=== PATIENT | female | born 1965 | race Caucasian/White ===

== ENCOUNTER → 2018-09-13 08:33 | Outpatient (CLI) | payer BC, SELFPAY ==
[2018-09-13 12:41] LABS: Absolute Lymphocyte Count 2.97 X10^3/ul (0.83-4.51); Absolute Neutrophil Count 3.9 X10^3/uL (2.0-7.7); Basophil# 0.04 X10^3/uL; Basophil% 0.5 % (0-1); Eosinophil# 0.43 X10^3/uL; Eosinophils% 5.4 % (0-5); Hematocrit 43.3 % (37-47); Hemoglobin 13.7 g/dl (12.0-15.0); Lymphocyte # 2.97 X10^3/ul (4.0); Mean Corp Hgb Conc 31.6 g/gl (32-36); Mean Corpuscular Hgb 31.6 pg (27.0-32.0); Mean Corpuscular Volume 99.8 fL (81-99); Monocyte# 0.65 X10^3/uL; Monocyte% 8.1 % (0-10); Neutrophil # 3.92 X10^3/uL (2.7-7.7); Neutrophil % 48.9 % (47-70); Platelet Count 203 K/mm3 (150-450); RBC Distribution Width CV 14.1 % (11.6-14.6); RBC Distribution Width SD 51.4 fl (35.1-43.9); Red Blood Count 4.34 M/mm3 (4.2-5.4)
[2018-09-13 12:42] LABS: POSITIVE COUNT NO; POSITIVE DIFFERENTIAL NO; POSITIVE MORPHOLOGY NO
[2018-09-13 13:12] LABS: AST(SGOT) 29 U/L (15-37); Alanine Aminotransfer ALT/SGPT 25 U/L (13-56); Albumin, Serum 3.7 g/dL (3.2-5.0); Alkaline Phosphatase 67 U/L (45-117); Anion Gap 8 (5-15); BUN 17 mg/dL (7-18); BUN/Creat Ratio 17.1 RATIO (10-20); Calcium,Total 8.3 mg/dL (8.5-10.1); Chloride 110 mmol/L (98-107); Cholesterol 215 mg/dL (200); EST Glomerular Filtration Rate 62 mL/min (>60); Est Glom Filt Rate - Afr Amer 75 mL/min (>60); Globulin 3.6 g/dL (2.2-4.2); Glucose 60 mg/dL (74-106); High Density Lipoprotein 57 mg/dL; Potassium 3.5 mmol/L (3.5-5.1); Protein, Total 7.3 g/dL (6.4-8.2); Sodium Level 144 mmol/L (136-145); T4 Free Direct 0.89 ng/dL (0.76-1.46); Triglycerides 90 mg/dL; Very Low Density Lipoprotein 18 mg/dL (5-40)
== END ==
PROVIDERS: Family Provider Family Medicine; PCP Family Medicine; Visit Provider Family Medicine
DX: Z00.01 Encounter for general adult medical examination with abnormal findings (principal); E03.9 Hypothyroidism, unspecified
CPT/HCPCS: 36415; 80053; 80061; 84439; 84443; 85025

== ENCOUNTER → 2020-01-15 | Outpatient (CLI) | payer BC, SELFPAY ==
[2016-07-24 20:16] VITALS: BMI 26.4
--- NOTE | 2020-01-15 09:53 | RAD_ITS ---
STUDY: X-RAY - LUMBOSACRAL SPINE REASON FOR EXAM: Female, 54 years old. spondylolisthesis TECHNIQUE: 7 view(s) of the lumbosacral spine were obtained. COMPARISON: None FINDINGS: Normal lumbar lordosis. There is no substantial scoliosis. There is a severe grade 4 anterolisthesis of L5 relative to S1. Normal vertebral bodies and endplates. There is severe narrowing of the L5-S1 disc space. Normal bilateral sacral ala, sacroiliac joints, and visualized sacrum. Normal visualized soft tissue structures. RAD/L/S Spine Bending Flex/Ext IMPRESSION: Severe grade 4 anterolisthesis of L5 relative to S1. Severe narrowing of the L5-S1 disc space. Electronically Signed: Eliseo Green MD at 16:35 EDT , Service support ,
[2020-01-15 09:56] LABS: Bacteria 0 SEEN /hpf (None Seen); Mucous, Urine 0 SEEN /hpf (<or=2+); Squamous Epithelial Cells - UA 0 SEEN /hpf (5-10); White Blood Cells 0 SEEN /hpf (0-5)
[2020-01-15 12:04] LABS: Absolute Lymphocyte Count 2.68 X10^3/uL (0.83-4.51); Absolute Neutrophil Count 5.2 X10^3/uL (2.0-7.7); Basophil# 0.07 X10^3/uL; Basophil% 0.8 % (0-1); Eosinophil# 0.27 X10^3/uL; Hematocrit 44.8 % (37-47); Hemoglobin 14.5 g/dL (12.0-15.0); Lymphocyte # 2.68 X10^3/ul (4.0); Lymphocyte % 29.4 % (19-41); Mean Corp Hgb Conc 32.4 g/dL (32-36); Mean Corpuscular Volume 98.9 fL (81-99); Mean Platelet Vol. 11.9 fl (6.2-12.0); Monocyte# 0.83 X10^3/uL; Monocyte% 9.1 % (0-10); NRBC Flagged by Analyzer 0 % (0-5); Neutrophil # 5.23 X10^3/uL (2.7-7.7); Neutrophil % 57.4 % (47-70); Platelet Count 250 K/mm3 (150-450); RBC Distribution Width CV 13.9 % (11.6-14.6); RBC Distribution Width SD 50.5 fl (35.1-43.9); Red Blood Count 4.53 M/mm3 (4.2-5.4); White Blood Count 9.1 K/mm3 (4.4-11.0)
[2020-01-15 12:19] LABS: Vitamin B12 406 pg/mL (211-911)
[2020-01-15 12:30] LABS: ALB/GLOB Ratio 0.9 RATIO (0.9-2.4); AST(SGOT) 17 U/L (15-37); Alanine Aminotransfer ALT/SGPT 19 U/L (13-56); Albumin, Serum 3.7 g/dL (3.2-5.0); Alkaline Phosphatase 79 U/L (45-117); Anion Gap 8 (5-15); BUN 20 mg/dL (7-18); BUN/Creat Ratio 21.4 RATIO (10-20); Calcium,Total 8.7 mg/dL (8.5-10.1); Chloride 108 mmol/L (98-107); Cholesterol 165 mg/dL (200); Creatinine, Serum 0.93 mg/dL (0.55-1.02); EST Glomerular Filtration Rate 67 mL/min (>60); Est Glom Filt Rate - Afr Amer 81 mL/min (>60); Glucose 81 mg/dL (74-106); High Density Lipoprotein 46 mg/dL; Potassium 3.9 mmol/L (3.5-5.1); Protein, Total 7.7 g/dL (6.4-8.2); Sodium Level 141 mmol/L (136-145); T4 Free Direct 1.27 ng/dL (0.76-1.46); Thyroid Stim Hormone (TSH) 2.54 uIU/mL (0.358-3.74); Triglycerides 117 mg/dL; Very Low Density Lipoprotein 23 mg/dL (5-40)
[2020-01-15 12:51] LABS: Color, Urine Yellow (Yellow); Glucose, Dipstick Normal (Normal); Ketone-Dipstick Negative (Negative); Leukocyte Esterase-Dipstick Negative /ul (Negative); Nitrite-Dipstick Negative (Negative); Occult Blood-Urine 50 /ul (Negative); Protein-Dipstick Negative (Negative); Specific Gravity, Urine 1.025 (1.002-1.030); Urine Bilirubin Dipstick Negative (Negative); Urine Clarity Sl. Cloudy (Clear); Urine Urobilinogen Normal (Normal)
[2020-01-15 13:03] LABS: Red Blood Cells-Urine 0-5 SEEN /hpf (0-5)
== END | disposition home or self-care (01) ==
LOC: MTLAB 09:50
PROVIDERS: PCP Family Medicine; Referring Provider Family Medicine; Visit Provider Family Medicine
DX: Z00.00 Encounter for general adult medical examination without abnormal findings (principal); M43.16 Spondylolisthesis, lumbar region; E03.9 Hypothyroidism, unspecified; N39.0 Urinary tract infection, site not specified; E53.8 Deficiency of other specified B group vitamins
CPT/HCPCS: 36415; 72120; 80053; 80061; 81001; 82607; 84439; 84443; 85025

== ENCOUNTER → 2022-03-03 | Outpatient (CLI) | payer BC, SELFPAY ==
--- NOTE | 2022-03-03 12:32 | RAD_ITS ---
INDICATION: PAIN EXAMINATION/TECHNIQUE: X-RAY - RIGHT XR Shoulder Min 2 Views 4 VIEWS COMPARISON: 03/08/2014. FINDINGS: A bone density is visualized superimposed over the surgical neck of the right humerus. Degenerative changes visualized in the greater tuberosity of the right humerus and in the right acromioclavicular joint. No evidence of cortical irregularity or lucency to suggest a fracture, no evidence of lytic sclerotic bone lesion is seen. Scapulohumeral arch is well maintained, no evidence of dislocation is seen. The overlying soft tissues are unremarkable, the underlying soft tissues and visualized right upper lung malin are unremarkable. RAD/Shoulder min 2 Views IMPRESSION: Degenerative changes, no evidence of acute osseous abnormality is seen Electronically Signed: Sudhir Ariza MD at 16:33 EDT ,
== END | disposition home or self-care (01) ==
PROVIDERS: PCP Family Medicine; Referring Provider Family Medicine; Visit Provider Family Medicine
DX: M25.511 Pain in right shoulder (principal)
CPT/HCPCS: 73030

== ENCOUNTER → 2022-04-12 | Outpatient (CLI) | payer BC, SELFPAY ==
--- NOTE | 2022-04-12 15:54 | MRI_ITS ---
STUDY: MRI RIGHT SHOULDER REASON FOR EXAM: Right shoulder pain extending into elbow for 1.5 years, no specific injury. TECHNIQUE: Standardized fat and water weighted pulse sequences were obtained in all 3 orthogonal planes. COMPARISON: Radiographs 03/03/2022. FINDINGS: Although there is image degradation secondary to patient motion, there is still significant diagnostically useful information available from this examination. There is supraspinatus tendinosis (T2 coronal images 13-15) without discrete tendon tear. There is infraspinatus tendinosis and a small low-grade partial-thickness tear of the articular surface of the distal infraspinatus tendon (T2 coronal image 10) measuring 0.2 cm in length. There is subscapularis tendinosis (T2 axial images 9, 10) without discrete tendon tear. Normal teres minor tendon. Normal supraspinatus muscle. Normal infraspinatus muscle. Normal subscapularis muscle. Normal teres minor muscle. Normal glenohumeral articulation. There is a small subchondral cyst in the anterior aspect of the humeral head. There is a bone island in the proximal humeral metaphysis. Normal biceps labral complex. There is mild tendinosis of the intracapsular long biceps tendon (T2 sagittal image 13). Normal labrum. Normal capsulo- ligamentous complex. There is acromioclavicular arthrosis with hypertrophic changes effacing the subacromial fat (T2 sagittal image 13). There is a Type II morphology (curved), with a neutral orientation. There is subacromial-subdeltoid bursal fluid (T2 coronal images 13-17). Normal visualized coracohumeral and coracoacromial ligaments. Normal deltoid muscle. Normal trapezius muscle. MRI/Upper Ext Joint Only(Routine) IMPRESSION: Small low-grade partial-thickness tear and tendinosis of the infraspinatus tendon. Supraspinatus and subscapularis tendinosis. Mild tendinosis of the long biceps tendon. Acromioclavicular arthrosis. Subacromial-subdeltoid bursitis. Electronically Signed: Brian Mcneal MD at 17:51 EDT ,
== END | disposition home or self-care (01) ==
PROVIDERS: PCP Family Medicine; Referring Provider Orthopaedic Surgery Sports Medicine; Visit Provider Orthopaedic Surgery Sports Medicine
DX: M75.41 Impingement syndrome of right shoulder (principal); M25.511 Pain in right shoulder
CPT/HCPCS: 73221

== ENCOUNTER → 2022-12-06 | Outpatient (CLI) | payer BC, SELFPAY ==
[2022-12-06 18:17] LABS: Absolute Lymphocyte Count 3.18 X10^3/uL (0.83-4.51); Absolute Neutrophil Count 5.3 X10^3/uL (2.0-7.7); Basophil# 0.05 X10^3/uL; Basophil% 0.5 % (0-1); Eosinophil# 0.16 X10^3/uL; Eosinophils% 1.7 % (0-5); Hemoglobin 13.3 g/dL (12.0-15.0); Lymphocyte # 3.18 X10^3/ul (0.83-4.51); Lymphocyte % 34.3 % (19-41); Mean Corp Hgb Conc 32.4 g/dL (32-36); Mean Corpuscular Hgb 31.3 pg (27.0-32.0); Mean Corpuscular Volume 96.5 fL (81-99); Mean Platelet Vol. 11.9 fl (6.2-12.0); Monocyte% 6.5 % (0-10); NRBC Flagged by Analyzer 0 % (0-5); Neutrophil # 5.25 X10^3/uL (2.7-7.7); Neutrophil % 56.6 % (47-70); Platelet Count 232 K/mm3 (150-450); RBC Distribution Width CV 13.3 % (11.6-14.6); RBC Distribution Width SD 47.5 fl (35.1-43.9); Red Blood Count 4.25 M/mm3 (4.2-5.4); White Blood Count 9.3 K/mm3 (4.4-11.0)
[2022-12-06 18:33] LABS: Vitamin B12 290 pg/mL (211-911)
[2022-12-06 18:47] LABS: ALB/GLOB Ratio 0.9 RATIO (0.9-2.4); AST(SGOT) 21 U/L (15-37); Alanine Aminotransfer ALT/SGPT 24 U/L (13-56); Albumin, Serum 3.4 g/dL (3.2-5.0); Alkaline Phosphatase 58 U/L (45-117); Anion Gap 7 (5-15); BUN 13 mg/dL (7-18); BUN/Creat Ratio 12.5 RATIO (10-20); Calcium,Total 8.2 mg/dL (8.5-10.1); Chloride 107 mmol/L (98-107); Creatinine, Serum 1.04 mg/dL (0.55-1.02); EST Glomerular Filtration Rate 58 mL/min (>60); Est Glom Filt Rate - Afr Amer 71 mL/min (>60); Globulin 3.7 g/dL (2.2-4.2); Glucose 105 mg/dL (74-106); Potassium 3.7 mmol/L (3.5-5.1); Protein, Total 7.1 g/dL (6.4-8.2); Sodium Level 141 mmol/L (136-145); T4 Free Direct 1.42 ng/dL (0.76-1.46); Thyroid Stim Hormone (TSH) 0.37 uIU/mL (0.358-3.74)
== END | disposition home or self-care (01) ==
LOC: BFHLAB 15:30
PROVIDERS: PCP Family Medicine; Visit Provider Family Medicine
DX: I95.9 Hypotension, unspecified (principal); E03.9 Hypothyroidism, unspecified; E53.0 Riboflavin deficiency
CPT/HCPCS: 36415; 80053; 82607; 84439; 84443; 85025

== ENCOUNTER 2023-01-07 06:43 | Emergency (ER) | payer BC, SELFPAY ==
[2023-01-07 06:43] VITALS: BP 162/88; PULSE 59; RESP 17; TEMP 36; O2SAT 100; BMI 24.3
--- NOTE | 2023-01-07 07:04 | CT_ITS ---
STUDY: CT ABDOMEN AND PELVIS WITH CONTRAST - URINARY TRACT REASON FOR EXAM: Female, 57 years old. Pain, Nausea Vomiting, Diarrhea RADIATION DOSAGE (If Supplied By Facility): CTDIvol = ( 17.73 ) mGy, DLP = ( 544.70 ) mGycm TECHNIQUE: IV 100mL Isovue-370 was administered. Transaxial images were obtained from the dome of the diaphragm to the symphysis pubis in the arterial, nephrographic and excretory phases. Multiplanar coronal and sagittal images were reformatted. Individualized Dose Optimization Techniques Were Used For This CT. COMPARISON: FINDINGS: The visualized lung bases are unremarkable. The visualized portions of the heart are within normal limits. There are numerous indeterminate hypodensities noted in the liver largest in the left lobe measuring 2.1 cm. Normal gallbladder and extrahepatic biliary system. Normal spleen. Normal pancreas. There is an indeterminate 1.5 cm right adrenal nodule. Left adrenal gland appears unremarkable. Normal visualized stomach. Normal small intestine. Normal colon. The appendix is visualized and appears normal. Normal abdominal aorta. No retroperitoneal adenopathy. Normal right kidney. Normal left kidney. Normal urinary bladder. Normal abdominal wall. There is prominent anterolisthesis of L5 on S1. CT/Abdomen/Pelvis W IV Cont ONLY IMPRESSION: Indeterminate hypodense lesions in the liver may represent cysts or hemangiomas however MRI with multiphase postcontrast images recommended for further characterization. Indeterminate right adrenal lesion could also be characterized with MRI. Otherwise no evidence for acute intra-abdominal or pelvic pathology. Electronically Signed: Martin Monreal, at 8:44 EDT ,
--- NOTE | 2023-01-07 07:05 | ED.VIS.GI ---
HPI HPI - GI History of Present Illness Chief Complaint: Abd Pain Narrative Narrative: 57-year female past medical history of chronic back pain/spondylolisthesis presents with nausea, vomiting, diarrhea, that began around 2 30-3 o'clock this morning, approximately 4 hours ago. She states that she woke up and started having nausea and vomiting. She vomited 4 times without any blood in her emesis. She is having loose stool also without blood. She complains mainly of epigastric to periumbilical pain. She denies any previous past abdominal surgeries. She states she tried to go to work, but feels sick to her stomach and is having sharp pain. [facility] Medical History Arthritis Arthritis of right acromioclavicular joint Feeling tired Incontinence Right rotator cuff tear Subacromial impingement of right shoulder Home Medications levothyroxine 175 mcg tablet 175 mcg PO DAILY 08/13/15 [History Last Taken Unknown] omeprazole 20 mg capsule,delayed release 20 mg PO DAILY #30 CAPSULES 01/07/23 [Rx Last Taken Unknown] ondansetron 4 mg disintegrating tablet 4 mg PO Q6H PRN nausea and vomiting #20 tabs 01/07/23 [Rx Last Taken Unknown] oxycodone-acetaminophen 7.5 mg-325 mg tablet 1 tab PO 4XD 01/07/23 [History Last Taken Unknown] Allergy/AdvReac Type Severity Reaction Status Date / Time No Known Allergies Allergy Verified 01/07/23 06:46 Family History Grandmother Heart disease Social History household members: children Smoking Status: Current every day smoker tobacco type: cigarettes alcohol intake: never ROS ROS ED ROS Narrative Constitutional: No fever, no chills. HEENT: No sore throat. No neck pain. No loss of vision. No rhinorrhea. Cardiovascular: No chest pain. No palpitations. No pedal edema. Respiratory: No cough, no shortness of breath. Abdominal: Epigastric abdominal pain, positive nausea and vomiting x4. No hematemesis. Loose stool, no melena or hematochezia. Genitourinary: No dysuria. No hematuria. Musculoskeletal: No myalgias. No arthralgias. Neurologic: No headaches. No dizziness. No lightheadedness. Skin: No rash. No change in color. Psychiatric: No depression. No anxiety. EXAM Physical Exam Narrative Exam Narrative: Afebrile. Vital signs noted. HEENT: Normocephalic. Atraumatic. PERRL, EOMI. Neck soft and supple. No point tenderness or step off. Cardiovascular: Regular rate and rhythm. No murmurs, rubs, or gallops appreciated. Respiratory: No tachypnea. Lungs clear to auscultation bilaterally. Gastrointestinal: Abdomen soft, mild tenderness in mid epigastrium, no pain over McBurney's point, with normoactive bowel sounds. No rebound or guarding. Negative Powers sign. Neurological: Awake. Alert. Nonfocal, nonlateralizing. Skin: No rash. Normal color. No pallor. Musculoskeletal: No pedal edema. Full range of motion extremities. Const Vital Signs: 01/07/23 06:43 Temperature 96.8 F L Temperature Source Temporal Pulse Rate 59 L Respiratory Rate 17 Blood Pressure 162/88 H Blood Pressure Mean 112 Pulse Ox 100 Oxygen Delivery Method Room Air MDM MDM MDM Narrative Medical decision making narrative: Given her symptoms, she may have gastroenteritis versus pancreatitis, I do have lower suspicion for cholecystitis as her pain is more mid epigastrium to periumbilical. Lower on the differential is also diverticulitis as she does not have pain in the bilateral lower quadrants. Treatment be symptomatic with a bolus of IV fluids for intravascular volume depletion. She was administered started ondansetron for her nausea and vomiting. I will obtain a CBC, CMP, and lipase. I do feel CT imaging is indicated to rule out any obstruction but she has low likelihood as she has no prior abdominal surgeries. I reviewed the patient's laboratory work, she has slight elevation of her WBC count 11.5, normal platelet count of 225, hemoglobin slightly hemoconcentrated at 15.5 with hematocrit 46.3. I reviewed her electrolyte panel and she has elevated chloride of 109 which I think is nonspecific, glucose appropriately elevated at 100 with a normal anion gap of 10. LFTs are normal with an AST of 29 and ALT of 24 and a normal alk phos of 56. Lipase normal at 56. I do not feel she has a pancreatitis. In review of her radiology report, she may have cysts or hemangiomas of the liver and an adrenal cyst, but there is no acute pathology as to the cause of her epigastric pain. She was administered Bentyl for pain. Upon repeat examination, she has not been vomiting but she states she is still having epigastric pain. I do not feel that she requires emergent surgery or observation. She was given a GI cocktail. I do feel she may have more of an ulcer versus gastritis. I advised follow-up with gastroenterology, Dr. William. The patient wanted to leave prior to formal discharge, but she did allow me to talk to her and I will write her for omeprazole and for Zofran. Return instructions to the emergency department were reviewed. Disposition is discharged home in stable condition. History & Record Review Discussion w/independent historian: Patient Additional record(s) reviewed:: Prior labs Lab Data Attestation: I reviewed the patient's lab results. Labs: Laboratory Results - last 24 hr 01/07/23 01/07/23 06:59 06:59 WBC 11.5 H RBC 4.79 Hgb 15.5 H Hct 46.3 MCV 96.7 MCH 32.4 H MCHC 33.5 RDW Std Deviation 50.6 H RDW Coeff of Cecelia 14.3 Plt Count 225 MPV 11.5 Immature Gran % (Auto) 0.400 Neut % (Auto) 69.4 Lymph % (Auto) 23.0 [place] % (Auto) 5.8 Eos % (Auto) 1.0 Baso % (Auto) 0.4 Absolute Neuts (auto) 8.0 H Absolute Lymphs (auto) 2.64 Nucleated RBC % 0 Sodium 143 Potassium 4.0 Chloride 109 H Carbon Dioxide 24.0 Anion Gap 10 BUN 18 Creatinine 0.97 Estim Creat Clear Calc 48.87 Est GFR (MDRD) Af Amer 76 Est GFR (MDRD) Non-Af 63 BUN/Creatinine Ratio 18.5 Glucose 100 Calcium 9.1 Total Bilirubin 0.30 AST 29 ALT 24 Alkaline Phosphatase 56 Total Protein 7.3 Albumin 3.8 Globulin 3.5 Albumin/Globulin Ratio 1.1 Lipase 56 Radiography Diagnostic Testing: Clinical Impression(s) from Imaging Studies Abdomen/Pelvis CT 01/07/23 07:04 IMPRESSION: Indeterminate hypodense lesions in the liver may represent cysts or hemangiomas however MRI with multiphase postcontrast images recommended for further characterization. Indeterminate right adrenal lesion could also be characterized with MRI. Otherwise no evidence for acute intra-abdominal or pelvic pathology. Electronically Signed: Martin Monreal, at 8:44 EDT , Discharge Plan Triage Chief Complaint: Abd Pain ED Provider: Nils De Jesus Dx/Rx/DC Orders Clinical Impression: Acute epigastric pain, Nausea, vomiting, and diarrhea Instructions: ED Diarrhea, Unknown Cause, ED Diet Vomiting Diarrhea, ED Vomiting (Adult), ED Epigastric Pain Uncertain Cause Prescriptions: New omeprazole 20 mg capsule,delayed release(DR/EC) 20 mg PO DAILY Qty: 30 0RF ondansetron 4 mg tablet,disintegrating 4 mg PO Q6H PRN (Reason: nausea and vomiting) Qty: 20 0RF No Action levothyroxine 175 MCG tablet 175 mcg PO DAILY oxycodone-acetaminophen 7.5-325 mg tablet 1 tab PO 4XD Label Comments: TAKE 1 TABLET BY MOUTH FOUR TIMES A DAY NEEDED Primary Care Provider: Janak Clemente Referrals: Janak Clemente DO [Primary Care Provider] - 3-5 Days if not improving Asad William DO [Med Staff - Active Staff] - As soon as possible Disposition Disposition: Home, Self Care Discharge Date/Time: 01/07/23 09:40
[2023-01-07] MEDS: 0.9% Normal Saline 1,000 ML 1000 ML IV (07:15)
[2023-01-07] MEDS: Ondansetron 4 MG/2 ML Vial IV (07:15)
[2023-01-07 07:23] LABS: Absolute Lymphocyte Count 2.64 X10^3/uL (0.83-4.51); Basophil# 0.05 X10^3/uL; Basophil% 0.4 % (0-1); Eosinophil# 0.12 X10^3/uL; Hematocrit 46.3 % (37-47); Hemoglobin 15.5 g/dL (12.0-15.0); Lymphocyte # 2.64 X10^3/ul (0.83-4.51); Mean Corp Hgb Conc 33.5 g/dL (32-36); Mean Corpuscular Hgb 32.4 pg (27.0-32.0); Mean Corpuscular Volume 96.7 fL (81-99); Mean Platelet Vol. 11.5 fl (6.2-12.0); Monocyte# 0.67 X10^3/uL; Monocyte% 5.8 % (0-10); NRBC Flagged by Analyzer 0 % (0-5); Neutrophil # 7.97 X10^3/uL (2.7-7.7); Neutrophil % 69.4 % (47-70); Platelet Count 225 K/mm3 (150-450); RBC Distribution Width CV 14.3 % (11.6-14.6); RBC Distribution Width SD 50.6 fl (35.1-43.9); Red Blood Count 4.79 M/mm3 (4.2-5.4); White Blood Count 11.5 K/mm3 (4.4-11.0)
[2023-01-07 07:50] LABS: ALB/GLOB Ratio 1.1 RATIO (0.9-2.4); AST(SGOT) 29 U/L (15-37); Alanine Aminotransfer ALT/SGPT 24 U/L (13-56); Albumin, Serum 3.8 g/dL (3.2-5.0); Alkaline Phosphatase 56 U/L (45-117); Anion Gap 10 (5-15); BUN 18 mg/dL (7-18); BUN/Creat Ratio 18.5 RATIO (10-20); Calcium,Total 9.1 mg/dL (8.5-10.1); Chloride 109 mmol/L (98-107); Creatinine, Serum 0.97 mg/dL (0.55-1.02); EST Glomerular Filtration Rate 63 mL/min (>60); Est Glom Filt Rate - Afr Amer 76 mL/min (>60); Estimated Creatinine Clearance 48.87 ml/min; Globulin 3.5 g/dL (2.2-4.2); Glucose 100 mg/dL (74-106); Lipase 56 U/L (13-75); Protein, Total 7.3 g/dL (6.4-8.2); Sodium Level 143 mmol/L (136-145)
[2023-01-07] MEDS: Dicyclomine 20 MG/2 ML Vial IM (08:54)
== END 2023-01-07 09:40 | disposition home or self-care (01) ==
PROVIDERS: Emergency Provider Emergency Medicine; PCP Family Medicine; Visit Provider Emergency Medicine
DX: R10.13 Epigastric pain (principal); R11.2 Nausea with vomiting, unspecified; R19.7 Diarrhea, unspecified; E86.9 Volume depletion, unspecified; F17.210 Nicotine dependence, cigarettes, uncomplicated
CPT/HCPCS: 74177; 80053; 83690; 85025; 96361; 96372; 96374; 99282; J7030; Q9967; A4216; J2405

== ENCOUNTER → 2023-01-17 | Outpatient (CLI) | payer BC, SELFPAY ==
[2023-01-17 18:19] LABS: Absolute Lymphocyte Count 2.22 X10^3/uL (0.83-4.51); Absolute Neutrophil Count 6.7 X10^3/uL (2.0-7.7); Basophil# 0.04 X10^3/uL; Basophil% 0.4 % (0-1); Eosinophil# 0.06 X10^3/uL; Eosinophils% 0.6 % (0-5); Hematocrit 45.4 % (37-47); Hemoglobin 14.7 g/dL (12.0-15.0); Lymphocyte # 2.22 X10^3/ul (0.83-4.51); Mean Corp Hgb Conc 32.4 g/dL (32-36); Mean Corpuscular Hgb 32.4 pg (27.0-32.0); Mean Platelet Vol. 11.3 fl (6.2-12.0); Monocyte# 0.57 X10^3/uL; Monocyte% 5.9 % (0-10); NRBC Flagged by Analyzer 0 % (0-5); Neutrophil # 6.69 X10^3/uL (2.7-7.7); Neutrophil % 69.5 % (47-70); Platelet Count 301 K/mm3 (150-450); RBC Distribution Width CV 14.5 % (11.6-14.6); RBC Distribution Width SD 53.8 fl (35.1-43.9); Red Blood Count 4.54 M/mm3 (4.2-5.4); White Blood Count 9.6 K/mm3 (4.4-11.0)
[2023-01-17 18:55] LABS: AST(SGOT) 17 U/L (15-37); Alanine Aminotransfer ALT/SGPT 29 U/L (13-56); Albumin, Serum 3.5 g/dL (3.2-5.0); Alkaline Phosphatase 61 U/L (45-117); Anion Gap 5 (5-15); BUN 14 mg/dL (7-18); BUN/Creat Ratio 14.9 RATIO (10-20); Calcium,Total 8.8 mg/dL (8.5-10.1); Chloride 106 mmol/L (98-107); Creatinine, Serum 0.94 mg/dL (0.55-1.02); EST Glomerular Filtration Rate 66 mL/min (>60); Est Glom Filt Rate - Afr Amer 79 mL/min (>60); Globulin 3.5 g/dL (2.2-4.2); Glucose 107 mg/dL (74-106); Potassium 3.9 mmol/L (3.5-5.1); Sodium Level 138 mmol/L (136-145)
== END | disposition home or self-care (01) ==
LOC: BFHLAB 15:18
PROVIDERS: PCP Family Medicine; Referring Provider Family Medicine; Visit Provider Family Medicine
DX: D72.829 Elevated white blood cell count, unspecified (principal); E87.8 Other disorders of electrolyte and fluid balance, not elsewhere classified
CPT/HCPCS: 36415; 80053; 85025

== ENCOUNTER 2023-10-27 14:23 | Emergency (ER) | payer BC, SELFPAY ==
[2023-10-27 14:23] VITALS: BP 151/92; PULSE 87; RESP 16; TEMP 36.6; O2SAT 98
[2023-10-27 15:05] LABS: Absolute Lymphocyte Count 0.94 X10^3/uL (0.83-4.51); Absolute Neutrophil Count 10.3 X10^3/uL (2.0-7.7); Basophil# 0.04 X10^3/uL; Basophil% 0.3 % (0-1); Hematocrit 48.3 % (37-47); Hemoglobin 15.9 g/dL (12.0-15.0); Lymphocyte # 0.94 X10^3/ul (0.83-4.51); Lymphocyte % 8.1 % (19-41); Mean Corp Hgb Conc 32.9 g/dL (32-36); Mean Corpuscular Hgb 31.3 pg (27.0-32.0); Mean Corpuscular Volume 95.1 fL (81-99); Mean Platelet Vol. 10.7 fl (6.2-12.0); Monocyte# 0.29 X10^3/uL; Monocyte% 2.5 % (0-10); NRBC Flagged by Analyzer 0 % (0-5); Neutrophil # 10.33 X10^3/uL (2.7-7.7); Neutrophil % 88.7 % (47-70); Platelet Count 233 K/mm3 (150-450); RBC Distribution Width CV 13.3 % (11.6-14.6); RBC Distribution Width SD 47.3 fl (35.1-43.9); Red Blood Count 5.08 M/mm3 (4.2-5.4); White Blood Count 11.7 K/mm3 (4.4-11.0)
[2023-10-27 15:25] LABS: ALB/GLOB Ratio 1.1 RATIO (0.9-2.4); AST(SGOT) 21 U/L (15-37); Alanine Aminotransfer ALT/SGPT 23 U/L (13-56); Albumin, Serum 4.1 g/dL (3.2-5.0); Alkaline Phosphatase 62 U/L (45-117); Anion Gap 5 (5-15); BUN 18 mg/dL (7-18); BUN/Creat Ratio 21.6 RATIO (10-20); Calcium,Total 9.2 mg/dL (8.5-10.1); Chloride 109 mmol/L (98-107); Creatinine, Serum 0.83 mg/dL (0.55-1.02); EST Glomerular Filtration Rate 75 mL/min (>60); Est Glom Filt Rate - Afr Amer 91 mL/min (>60); Globulin 3.6 g/dL (2.2-4.2); Glucose 117 mg/dL (74-106); Potassium 3.7 mmol/L (3.5-5.1); Protein, Total 7.7 g/dL (6.4-8.2); Sodium Level 140 mmol/L (136-145)
--- NOTE | 2023-10-27 15:30 | EDS_ITS ---
HPI <LILLIE Rhoades - Last Filed: 10/27/23 17:26> History of Present Illness Chief Complaint: Abd Pain Narrative Narrative: Patient is a 57-year-old female with history of chronic back pain that takes Percocet 7.5 mg daily, hypothyroidism, smokes 1 pack/day presents to the emergency department with right upper abdominal pain, nausea, vomiting as well as right mid back pain. Patient states that this woke her up at approximately 2 AM. Patient states that she does have some pain to her lower abdomen and cramping. She denies any blood in her vomit, denies any blood in her stool. She denies any fever or chills. Patient states she feels dehydrated. She denies any history of surgeries to her abdomen. PFS <LILLIE Rhoades - Last Filed: 10/27/23 17:26> [facility] Medical History Arthritis Arthritis of right acromioclavicular joint Feeling tired Incontinence Right rotator cuff tear Subacromial impingement of right shoulder Home Medications levothyroxine 175 mcg tablet 175 mcg PO DAILY 08/13/15 [History Last Taken Unknown] omeprazole 20 mg capsule,delayed release 20 mg PO DAILY #30 CAPSULES 01/07/23 [Rx Last Taken Unknown] ondansetron 4 mg disintegrating tablet 4 mg PO Q6H PRN nausea and vomiting #20 tabs 01/07/23 [Rx Last Taken Unknown] oxycodone-acetaminophen 7.5 mg-325 mg tablet 1 tab PO 4XD 01/07/23 [History Last Taken Unknown] dicyclomine 20 mg tablet 20 mg PO TID #30 tabs 10/27/23 [Rx Last Taken Unknown] ondansetron 4 mg disintegrating tablet 4 mg PO Q8H PRN PRN Nausea #10 tabs 10/27/23 [Rx Last Taken Unknown] pantoprazole 40 mg tablet,delayed release (Protonix) 40 mg PO DAILY #30 tabs 10/27/23 [Rx Last Taken Unknown] Allergy/AdvReac Type Severity Reaction Status Date / Time No Known Allergies Allergy Verified 10/27/23 14:25 Family History Grandmother Heart disease Social History household members: children Smoking Status: Current every day smoker tobacco type: cigarettes alcohol intake: never ROS <LILLIE Rhoades - Last Filed: 10/27/23 17:26> ROS ED ROS Narrative Constitutional: Negative for fever, weight loss, weakness. Positive for chills Eyes: Negative for vision loss, vision change, double vision ENT: Negative for any sore throat, ear pain, congestion Cardiovascular: Negative for any chest pain, tightness, palpitations Respiratory: Negative for any cough, sputum production, hemoptysis, dyspnea, dyspnea on exertion, orthopnea Gastrointestinal: Negative for any constipation, blood in stool, blood in vomit. Positive for abdominal pain, nausea and vomiting : Negative for any urinary frequency, dysuria, retention, blood in urine Muscle skeletal: Negative for any neck pain, back pain Neurological: Negative for any headache, syncope, dizziness Skin: Negative for any rashes, itching, abrasions, lacerations Psychiatric: Negative for any depression, anxiety, stress, suicidal ideation, homicidal ideation Hematologic: Negative for any excessive bruising, easy bleeding EXAM <LILLIE Rhoades - Last Filed: 10/27/23 17:26> Physical Exam Narrative Exam Narrative: Vital signs reviewed. HEET: Head normocephalic atraumatic, TMs clear bilaterally. Posterior pharynx is clear, moist mucous membranes. Nares clear bilaterally. Neck: Supple with no lymphadenopathy or tenderness. No signs of meningismus. Cardiac: Regular rate and rhythm no murmurs gallops or rubs, equal peripheral pulses bilaterally. Respiratory: Lungs clear to auscultation bilaterally. No chest tenderness. Abdomen: Soft, nondistended. No abdominal bruit or pulsatile masses. No hepatosplenomegal. Pain to the right upper quadrant, pain to the left lower quadrant. Active bowel sounds in all quadrants. No Powers sign no peritoneal signs Extremities: No peripheral edema, no signs of gross trauma or deformity. Active full range of motion of all extremities. Neuro: Cranial nerves II through XII intact, no focal neurological deficits. Skin: Clean dry and intact with no rash, purpura, petechiae, vesicles or pustules. Backs/flank: No CVA tenderness, no midline spinal tenderness, no deformity. Psych: Normal mood and affect. No SI, HI or acute psychosis. Const Vital Signs: 10/27/23 14:23 10/27/23 16:23 Temperature 98 F Temperature Source Temporal Pulse Rate 87 80 Respiratory Rate 16 16 Blood Pressure 151/92 H 160/90 H Blood Pressure Mean 111 113 Pulse Ox 98 Oxygen Delivery Method Room Air <Dr. Amor Scherer DO - Last Filed: 10/27/23 18:07> Physical Exam Const Vital Signs: 10/27/23 14:23 10/27/23 16:23 Temperature 98 F Temperature Source Temporal Pulse Rate 87 80 Respiratory Rate 16 16 Blood Pressure 151/92 H 160/90 H Blood Pressure Mean 111 113 Pulse Ox 98 Oxygen Delivery Method Room Air MDM <LILLIE Rhoades - Last Filed: 10/27/23 17:26> MDM Lab Data Labs: Laboratory Results - last 24 hr 10/27/23 15:00 WBC 11.7 H RBC 5.08 Hgb 15.9 H Hct 48.3 H MCV 95.1 MCH 31.3 MCHC 32.9 RDW Std Deviation 47.3 H RDW Coeff of Cecelia 13.3 Plt Count 233 MPV 10.7 Immature Gran % (Auto) 0.400 Neut % (Auto) 88.7 H Lymph % (Auto) 8.1 L [place] % (Auto) 2.5 Eos % (Auto) 0.0 Baso % (Auto) 0.3 Absolute Neuts (auto) 10.3 H Absolute Lymphs (auto) 0.94 Nucleated RBC % 0 Sodium 140 Potassium 3.7 Chloride 109 H Carbon Dioxide 26.0 Anion Gap 5 BUN 18 Creatinine 0.83 Est GFR (MDRD) Af Amer 91 Est GFR (MDRD) Non-Af 75 BUN/Creatinine Ratio 21.6 H Glucose 117 H Calcium 9.2 Total Bilirubin 0.50 AST 21 ALT 23 Alkaline Phosphatase 62 Total Protein 7.7 Albumin 4.1 Globulin 3.6 Albumin/Globulin Ratio 1.1 Radiography Diagnostic Testing: Clinical Impression(s) from Imaging Studies Abdomen/Pelvis CT 10/27/23 15:50 IMPRESSION: Hepatic cysts similar to previous study. Relatively stable right adrenal nodule. Electronically Signed: Mark Rodriguez DO at 16:30 EDT Reading Location ID and State: [facility] / [place] Tel [phone], Service support , Treatment and Re-Evaluation :: Differential diagnosis includes however is not limited to: Obstructing uropathy, bowel obstruction, gastroenteritis, peptic ulcer disease, acute cholecystitis, gallstones Patient appears to be in no obvious respiratory distress, patient's vital signs are stable. Patient presents to the emergency department with right-sided abdom inal pain, back pain, nausea and vomiting. Patient will receive a full abdominal workup including CBC CMP lipase, patient received a CT scan of the abdomen pelvis. Urinalysis will be tested. Patient given IV fluids, Zofran, morphine. Patient be reevaluated. All radiologic examinations were read, reviewed by the emergency department attending. From these reads, a plan of care will be put in place. Patient on reevaluation did have mild amount of relief, patient was redosed with IV morphine, IV Zofran. Patient's CBC showed a leukocytosis white blood count of 11.7, slight hemoconcentration, hemoglobin 15.9, macro 40.3. Patient's chloride 109 with a BUN of 21.6, glucose of 117, currently waiting on lipase. Lipase was negative. Patient will be discharged home, she will follow-up with Dr. William. Patient was given omeprazole, Bentyl, Zofran. <Dr. Amor Scherer, DO - Last Filed: 10/27/23 18:07> [facility] Narrative Medical decision making narrative: I have personally performed a face to face assessment of the patient and have reviewed the MAK Note. I performed a substantive portion of the visit including all aspects of the following. My schmitz findings include: History: Patient presents with abdominal pain that became worse today. Patient states it came on rather suddenly. Patient states that has been waxing and waning. Patient describes her pain as dull. Patient states the pain is over the upper abdomen. Patient admits to some nausea and vomiting. Patient denies any hematemesis or coffee-ground emesis. Patient denies any diarrhea, melena, or hematochezia. Patient denies any dysuria, frequency, or hematuria. Exam: Vital signs are stable except for mildly elevated blood pressure of 151/92. Patient is afebrile. Patient is in no acute distress. Oral mucosa is pink and moist. Neck is supple. Trachea is midline. There is no JVD. Heart was regular rate and rhythm. Lungs are clear and equal bilaterally. Abdomen is soft. Bowel sounds are normal. There is some mild tenderness over the upper abdomen. There is no rebound or guarding noted. Cranial nerves II through XII are intact. There are no focal motor or sensory deficits noted. Medical Decision Making: Differential diagnosis includes gastritis, pancreatitis, gastroenteritis, cholecystitis, cholelithiasis, and exacerbation of chronic pain. CBC will be obtained to assess for leukocytosis and anemia. Comprehensive metabolic profile will be obtained to assess for hepatic function, renal function, and electrolyte abnormality. Lipase will be obtained to assess for pancreatitis. CT scan of the abdomen pelvis will be obtained to assess for bowel obstruction, perforation, cholelithiasis, cholecystitis, and pancreatitis. Patient was given IV fluids, morphine, and Zofran. CBC was reviewed. There is a slight leukocytosis of 11.7. Hemoglobin was slightly elevated at 15.9 and hematocrit was 48.3. Platelets were normal. Comprehensive metabolic profile was reviewed and was essentially within normal limits. Lipase was reviewed and was normal at 33. Patient was advised of her findings. Patient was instructed to follow-up with her primary care physician in 5 to 7 days. Patient was i nstructed to return if worse in any way. Patient understood and was agreeable with the plan. All questions were answered. Lab Data Labs: Laboratory Results - last 24 hr 10/27/23 15:00 WBC 11.7 H RBC 5.08 Hgb 15.9 H Hct 48.3 H MCV 95.1 MCH 31.3 MCHC 32.9 RDW Std Deviation 47.3 H RDW Coeff of Cecelia 13.3 Plt Count 233 MPV 10.7 Immature Gran % (Auto) 0.400 Neut % (Auto) 88.7 H Lymph % (Auto) 8.1 L [place] % (Auto) 2.5 Eos % (Auto) 0.0 Baso % (Auto) 0.3 Absolute Neuts (auto) 10.3 H Absolute Lymphs (auto) 0.94 Nucleated RBC % 0 Sodium 140 Potassium 3.7 Chloride 109 H Carbon Dioxide 26.0 Anion Gap 5 BUN 18 Creatinine 0.83 Est GFR (MDRD) Af Amer 91 Est GFR (MDRD) Non-Af 75 BUN/Creatinine Ratio 21.6 H Glucose 117 H Calcium 9.2 Total Bilirubin 0.50 AST 21 ALT 23 Alkaline Phosphatase 62 Total Protein 7.7 Albumin 4.1 Globulin 3.6 Albumin/Globulin Ratio 1.1 Radiography Diagnostic Testing: Clinical Impression(s) from Imaging Studies Abdomen/Pelvis CT 10/27/23 15:50 IMPRESSION: Hepatic cysts similar to previous study. Relatively stable right adrenal nodule. Electronically Signed: Mark Rodriguez DO at 16:30 EDT Reading Location ID and State: [facility] / [place] Tel [phone], Service support , Discharge Plan Triage Chief Complaint: Abd Pain ED Midlevel Provider: Jose Alejandro Harden ED Provider: Amor Scherer Dx/Rx/DC Orders Prescriptions: No Action levothyroxine 175 MCG tablet 175 mcg PO DAILY oxycodone-acetaminophen 7.5-325 mg tablet 1 tab PO 4XD Patient Comments: TAKE 1 TABLET BY MOUTH FOUR TIMES A DAY NEEDED omeprazole 20 mg capsule,delayed release(DR/EC) 20 mg PO DAILY Qty: 30 0RF ondansetron 4 mg tablet,disintegrating 4 mg PO Q6H PRN (Reason: nausea and vomiting) Qty: 20 0RF Primary Care Provider: Janak Clemente Referrals: Janak Clemente DO [Primary Care Provider] -
[2023-10-27] MEDS: Ondansetron 4 MG/2 ML Vial IV ×2 (15:34→17:19)
[2023-10-27] MEDS: Morphine 4 MG/ML Syringe IV ×2 (15:35→17:21)
[2023-10-27] MEDS: 0.9% Normal Saline (1000mL) 1,000 ML 1000 ML IV (15:35)
--- NOTE | 2023-10-27 15:50 | CT_ITS ---
STUDY: CT ABDOMEN AND PELVIS WITH CONTRAST REASON FOR EXAM: Female, 57 years old. Abdominal pain RADIATION DOSAGE (If Supplied By Facility): CTDIvol = ( 13.69 ) mGy, DLP = ( 495.35 ) mGycm TECHNIQUE: Transaxial images were obtained from the dome of the diaphragm to the symphysis pubis without oral contrast. IV 100mL Isovue-300 was administered. Sagittal and coronal images were reconstructed. Individualized dose optimization techniques were used for this CT. COMPARISON: January 07, 2023. FINDINGS: Right middle lobe atelectasis. The visualized portions of the heart are within normal limits. Up to 2.6 cm cysts in the liver. Normal gallbladder and extrahepatic biliary system. Normal spleen. Normal pancreas. Right adrenal 1.3 cm nodule. Normal right kidney. Normal left kidney. Normal visualized stomach. Normal small intestine. Normal colon. The appendix is visualized and appears normal. Normal abdominal aorta. Normal inferior vena cava. Normal retroperitoneum. Normal urinary bladder. Normal abdominal wall. Stable severe spondylolisthesis at the lumbosacral junction with bony fusion. CT/Abdomen/Pelvis W IV Cont ONLY IMPRESSION: Hepatic cysts similar to previous study. Relatively stable right adrenal nodule. Electronically Signed: Mark Rodriguez DO at 16:30 EDT ,
[2023-10-27 16:23] VITALS: BP 160/90; PULSE 80; RESP 16
[2023-10-27 16:27] VITALS: BMI 25.7
[2023-10-27 17:21] LABS: Lipase 33 U/L (13-75)
== END 2023-10-27 17:55 | disposition home or self-care (01) ==
PROVIDERS: Nurse Practitioner; Emergency Provider Emergency Medicine; PCP Family Medicine; Visit Provider Emergency Medicine
DX: R10.11 Right upper quadrant pain (principal); R10.32 Left lower quadrant pain; R11.2 Nausea with vomiting, unspecified; M54.9 Dorsalgia, unspecified; G89.29 Other chronic pain; E03.9 Hypothyroidism, unspecified; F17.210 Nicotine dependence, cigarettes, uncomplicated; Z79.890 Hormone replacement therapy; Z79.899 Other long term (current) drug therapy
CPT/HCPCS: 74177; 80053; 83690; 85025; 96361; 96374; 96375; 96376; 99283; J7030; Q9967; A4216; J2405

== ENCOUNTER → 2023-11-29 | Outpatient (CLI) | payer BC, SELFPAY ==
[2023-11-29 17:06] LABS: Cholesterol 187 mg/dL (200); High Density Lipoprotein 57 mg/dL; Thyroid Stim Hormone (TSH) 3.43 uIU/mL (0.358-3.74); Triglycerides 108 mg/dL; Very Low Density Lipoprotein 22 mg/dL (5-40)
== END | disposition home or self-care (01) ==
LOC: BFHLAB 15:44
PROVIDERS: PCP Family Medicine; Referring Provider Family Medicine; Visit Provider Family Medicine
DX: E78.5 Hyperlipidemia, unspecified (principal); E03.9 Hypothyroidism, unspecified
CPT/HCPCS: 36415; 80061; 84439; 84443

== ENCOUNTER → 2023-12-16 | Outpatient (CLI) | payer BC, SELFPAY ==
--- NOTE | 2023-12-16 14:55 | BI_ITS ---
MAMMOGRAPHY - BILATERAL SCREENING REASON FOR EXAM: Female, 57 years old. Routine annual screening examination. PERTINENT HISTORY: Non-contributory. TECHNIQUE: Digital bilateral breast magdalena (3D mammographic acquisition) in the CC and MLO projections. 2-D mediolateral oblique (MLO) and craniocaudad (CC) views of both breasts were obtained. CAD: Full Field Digital Mammography with Computer Added Detection was performed. COMPARISON: Comparison is made with prior outside examination dated June 01, 2016. FINDINGS: Breast Composition: There are scattered areas of fibroglandular density. There are no dominant masses or suspicious calcifications. No other significant abnormalities are identified. There has been no significant change since the prior study. BI/SCRN MAMM (CAD)W/MAGDALENA BILAT IMPRESSION: Stable bilateral screening mammogram. Yearly follow-up mammogram recommended. (A) ASSESSMENT CATEGORY: BIRADS Category 1: Negative. A letter regarding these results will be sent to the patient by the facility within 30 days. Approximately 10% of breast cancers are not detected by mammography. A normal mammogram should not delay biopsy of a clinically suspicious abnormality. [id number] Electronically Signed: Jadon Crews MD at 8:33 EDT ,
== END | disposition home or self-care (01) ==
PROVIDERS: PCP Family Medicine; Referring Provider Family Medicine; Visit Provider Family Medicine
DX: Z12.31 Encounter for screening mammogram for malignant neoplasm of breast (principal)
CPT/HCPCS: 77063; 77067

== ENCOUNTER → 2023-12-21 | Outpatient (CLI) | payer BC, SELFPAY ==
--- NOTE | 2023-12-21 18:08 | CT_ITS ---
EXAM: CT CHEST, LUNG CANCER SCREENING WITHOUT INTRAVENOUS CONTRAST CLINICAL INDICATION: SMOKER TECHNIQUE: Helically acquired images were obtained of the chest without intravenous contrast using low dose (LDCT) lung cancer screening protocol. This CT exam was performed using one or more of the following dose reduction techniques: automated exposure control, adjustment of the mA and/or kV according to patient size, and/or use of iterative reconstruction technique. COMPARISON: No relevant prior studies available. FINDINGS: LUNGS AND PLEURAL SPACES: There is atelectasis and consolidation in the right middle lobe. There are mild emphysematous changes in the lung apices. No mass. No pleural effusion or thickening. No pneumothorax. HEART: Unremarkable. Heart size is normal. No pericardial effusion. No significant coronary artery calcifications. MEDIASTINUM: Unremarkable. No mediastinal or hilar adenopathy. Esophagus is unremarkable. No hiatal hernia. THYROID: Unremarkable. No thyroid lesions. BONES/JOINTS: Unremarkable. No suspicious lytic or blastic abnormality. VASCULATURE: Unremarkable. Thoracic aorta is non-dilated. LYMPH NODES: Unremarkable. No enlarged lymph nodes. CT/Low Dose CT Lung Screening IMPRESSION: Right middle lobe consolidation which may represent pneumonia. There are emphysematous changes in the lung apices. Lung-RADS score: 1S - Additional clinically significant or potentially clinically significant findings are described. Recommend continued annual screening with a low-dose CT (LDCT) in 12 months. Electronically Signed: Baljeet Soto MD at 23:52 EDT ,
== END | disposition home or self-care (01) ==
PROVIDERS: PCP Family Medicine; Referring Provider Family Medicine; Visit Provider Family Medicine
DX: Z12.2 Encounter for screening for malignant neoplasm of respiratory organs (principal); Z72.0 Tobacco use
CPT/HCPCS: 71271

== ENCOUNTER 2024-04-01 19:29 | Emergency (ER) | payer BC, SELFPAY ==
[2024-04-01] VITALS (7 sets, daily range): BP systolic 97–116; BP diastolic 69–75; PULSE 59–84; RESP 14–18; TEMP 36.6–36.8; O2SAT 95–99; BMI 25.7
--- NOTE | 2024-04-01 20:05 | RAD_ITS ---
EXAM: XR CHEST, 1 VIEW CLINICAL INDICATION: chest pain TECHNIQUE: Frontal view of the chest. COMPARISON: No relevant prior studies available. FINDINGS: LUNGS AND PLEURAL SPACES: Unremarkable. No consolidation or edema. No pneumothorax. No effusion. HEART: Unremarkable. Cardiac silhouette not enlarged. MEDIASTINUM: Central airways and mediastinal contour are unremarkable. BONES/JOINTS: Unremarkable. No acute fracture. SOFT TISSUES: Unremarkable. RAD/Chest 1 View (Portable) IMPRESSION: No radiographic evidence of acute cardiopulmonary disease. Electronically Signed: Otto Antony MD at 20:22 EDT ,
--- NOTE | 2024-04-01 20:06 | EDS_ITS ---
HPI History of Present Illness Chief Complaint: Chest Pain [facility] Medical History Arthritis Arthritis of right acromioclavicular joint Feeling tired Incontinence Right rotator cuff tear Subacromial impingement of right shoulder Home Medications ?Medication ?Instructions ?Recorded ?Last Taken ?Type levothyroxine 175 mcg tablet 175 mcg PO DAILY 08/13/15 Unknown History omeprazole 20 mg capsule,delayed 20 mg PO DAILY #30 CAPSULES 01/07/23 Unknown Rx release ondansetron 4 mg disintegrating 4 mg PO Q6H PRN nausea and 01/07/23 Unknown Rx tablet vomiting #20 tabs oxycodone-acetaminophen 7.5 mg-325 1 tab PO 4XD 01/07/23 Unknown History mg tablet dicyclomine 20 mg tablet 20 mg PO TID #30 tabs 10/27/23 Unknown Rx ondansetron 4 mg disintegrating 4 mg PO Q8H PRN PRN Nausea #10 tabs 10/27/23 Unknown Rx tablet pantoprazole 40 mg tablet,delayed 40 mg PO DAILY #30 tabs 10/27/23 Unknown Rx release (Protonix) pregabalin 100 mg capsule 100 mg PO TID 04/01/24 Unknown History Allergy/AdvReac Type Severity Reaction Status Date / Time No Known Allergies Allergy Verified 04/01/24 19:31 Family History Grandmother Heart disease Social History household members: children Smoking Status: Current every day smoker tobacco type: cigarettes alcohol intake: never EXAM Physical Exam Const Vital Signs: 04/01/24 19:29 04/01/24 19:50 04/01/24 20:23 Temperature 98.2 F Temperature Source Temporal Pulse Rate 72 Respiratory Rate 16 Respiratory Effort Normal Non-Labored Blood Pressure 102/75 Blood Pressure Mean 84 Pulse Ox 98 95 Oxygen Delivery Method Room Air Room Air 04/01/24 20:29 04/01/24 21:00 04/01/24 22:00 Temperature Temperature Source Pulse Rate 66 59 L 84 Respiratory Rate 17 14 18 Respiratory Effort Blood Pressure 102/73 102/73 116/69 Blood Pressure Mean 82 84 84 Pulse Ox 98 97 Oxygen Delivery Method Room Air Room Air Room Air 04/01/24 23:00 Temperature Temperature Source Pulse Rate 61 Respiratory Rate 18 Respiratory Effort Blood Pressure 97/71 Blood Pressure Mean 79 Pulse Ox 97 Oxygen Delivery Method Room Air [facility] MDM Narrative Medical decision making narrative: HISTORY OF PRESENT ILLNESS: 58-year-old female history of hypothyroidism presents with chest pain. Per triage note patient was sudden episode of dizziness, blurred vision nausea sweating and chest heaviness. Symptoms have since resolved. She is chest pain- free at this time. Denies history of heart attacks. No she smokes but denies history of diabetes or high blood pressure. Denies family history of early cardiac . Denies family history of connective tissue diseases. The patient denies recent surgery in the last 4 weeks or immobilization in the last 3 days, denies previous diagnosis of DVT or PE, hemoptysis, unilateral leg swelling or malignancy with treatment in the last 6 months. No estrogen use noted. Patient denies ripping sensation, no tearing sensation, no migratory symptoms, no new numbness, weakness or loss of sensation. Patient denies family history or personal history of Connective tissue disorders (Marfan's Syndrome, Rikki Danlos etc). REVIEW OF SYSTEMS: Pertinent positives: Chest pain, blurry vision, nausea, diaphoresis Pertinent negatives: Focal deficits, leg swelling PHYSICAL EXAM: Nursing triage notes reviewed, Vital signs reviewed Constitutional: please see mdm HENT: MMM Eyes: Pupils equal round and reactive to light, Extraocular muscles intact Neck: No stridor, no JVD, full neck ROM Lungs: Clear to auscultation, No wheezing or rales. No increased work of breathing, no conversational dyspnea, no accessory muscle use, no nasal flaring. No respiratory distress noted Heart: Regular rate and rhythm, No murmurs, No rubs and No gallops, 2+ distal pulses (radial, femoral, posterior tibial) in all extremities Abdomen: Soft, there is no tenderness, rigidity, rebound or guarding, no obvious peritoneal signs, no palpable pulsatile abdominal masses, no auscultated abdominal bruit : No CVAT Extremities: No edema Neuro: No focal neurological deficits, cranial nerves II through XII intact, 5/5 strength in all extremities. Intact sensation to light touch in all extremities, 2+ reflexes bilateral patella tendons. Normal gait. No ataxia. Skin: No rash or lesions noted MEDICAL DECISION MAKING: Chief Complaint: Chest pain External records reviewed: Prior imaging studies reviewed Factors affecting care: Hypothyroidism Social determinants of health: Denies illicit drugs, cocaine or methamphetamine History obtained from others: none Consults: none MDM Narrative: The patient was initially hemodynamically stable, afebrile and nontoxic- appearing. Exam without focal cardiopulmonary abnormality. I considered the following differential diagnosis: ACS, arrhythmia, anemia, electrolyte disturbance, pneumonia, pneumothorax, pericarditis, aortic dissection, PE I obtained a broad lab and imaging workup to further elucidate etiology of patient complaint. Gave the patient a 500 cc bolus and aspirin for initial symptom control and mortality benefit ALL IMAGES (IF OBTAINED) HAVE BEEN PERSONALLY REVIEWED AND INTERPRETED BY MYSELF. EKG with normal sinus rhythm normal axis, normal intervals, no obvious STEMI, no stigmata of right heart strain, no stigmata pericarditis I have personally reviewed the patient's chest x-ray. Chest x-ray is unremarkable for pulmonary edema, pneumothorax, pneumonia or focal cardiopulmonary abnormality. High-sensitivity troponin is negative, no evidence of myocardial ischemia x 2 CBC without leukocytosis, severe anemia, no thrombocytopenia. No coagulopathy BMP without evidence of significant electrolyte abnormalities, no anion gap, no acute kidney injury. On reassessment patient was chest pain-free. ACS was ruled out by high- sensitivity protocol. PE dissection ruled out by history and physical exam. Signs of pneumothorax, pericarditis, significant anemia, electrolyte disturbances or arrhythmia. Her vitals remained stable. She is appropriate for discharge home. Etiology is unclear. The patient and/or family, caregivers express understanding. The patient and/or family, caregivers agrees with the plan. Shared decision making: I will have a discussion with the patient and or visitors regarding risk/benefit s of further testing or admission. They will be made aware of of the risk/benefits inherent in this decision they will be given the opportunity to voice understanding. Total critical care time today provided was at least 0 minutes. This excludes separately billable procedures. Critical care time (if documented) is secondary to the patient having high probability of clinically significant/life threatening deterioration in the patient's condition which required my urgent intervention. Impression: 1. Chest pain 2. History of tobacco abuse Dispo: Discharge home This note was generated with IDbyME dictation software. It may contain incorrect words, spelling, and punctuation that were not noted in review of the chart prior to signing. Lab Data Labs: Laboratory Results - last 24 hr 04/01/24 04/01/24 20:00 22:20 WBC 9.3 RBC 4.18 L Hgb 13.6 Hct 41.6 MCV 99.5 H MCH 32.5 H MCHC 32.7 RDW Std Deviation 49.1 H RDW Coeff of Cecelia 13.4 Plt Count 198 MPV 10.9 Immature Gran % (Auto) 0.400 Neut % (Auto) 66.2 Lymph % (Auto) 22.5 Smyth % (Auto) 8.6 Eos % (Auto) 1.7 Baso % (Auto) 0.6 Absolute Neuts (auto) 6.2 Absolute Lymphs (auto) 2.10 Nucleated RBC % 0 PT 13.0 INR 1.0 APTT 28.4 Sodium 140 Potassium 3.7 Chloride 106 Carbon Dioxide 29.0 Anion Gap 5 BUN 14 Creatinine 1.06 H Estim Creat Clear Calc 49.35 Est GFR (MDRD) Af Amer 69 Est GFR (MDRD) Non-Af 57 L BUN/Creatinine Ratio 13.2 Glucose 76 Calcium 8.7 Troponin I High Sens 4 4 Radiography Diagnostic Testing: Clinical Impression(s) from Imaging Studies Chest X-Ray 04/01/24 20:05 IMPRESSION: No radiographic evidence of acute cardiopulmonary disease. Electronically Signed: Otto Antony MD at 20:22 EDT Reading Location ID and State[facility] [place] , Service support , Discharge Plan Triage Chief Complaint: Chest Pain ED Provider: Feliz Steiner Dx/Rx/DC Orders Instructions: Chest Pain [facility] Prescriptions: No Action levothyroxine 175 MCG tablet 175 mcg PO DAILY oxycodone-acetaminophen 7.5-325 mg tablet 1 tab PO 4XD Patient Comments: TAKE 1 TABLET BY MOUTH FOUR TIMES A DAY NEEDED omeprazole 20 mg capsule,delayed release(DR/EC) 20 mg PO DAILY Qty: 30 0RF ondansetron 4 mg tablet,disintegrating 4 mg PO Q6H PRN (Reason: nausea and vomiting) Qty: 20 0RF pantoprazole [Protonix] 40 mg tablet,delayed release (DR/EC) 40 mg PO DAILY Qty: 30 0RF ondansetron 4 mg tablet,disintegrating 4 mg PO Q8H PRN PRN (Reason: Nausea) Qty: 10 0RF dicyclomine 20 mg tablet 20 mg PO TID Qty: 30 0RF pregabalin 100 mg capsule 100 mg PO TID Primary Care Provider: Janak Clemente Referrals: Janak Clemente, DO [Primary Care Provider] - Activity Restrictions/Additional Instructions: Thank you for trusting us with your care today! Your labs images were unremarkable for signs of heart attack, significant bleeding or clotting issues. Please take Tylenol (2 pills, 650 mg), ibuprofen (2 pills, 400 mg) every 6 hours as needed for pain and fever control. Please begin taking daily aspirin Please return to the emergency department if your symptoms change or worsen. Please follow with your primary care physician for further outpatient evaluation and management. Specifically for provocative test including stress test. Print Language: Pashto Disposition Disposition: Home, Self Care
[2024-04-01 20:14] LABS: Absolute Neutrophil Count 6.2 X10^3/uL (2.0-7.7); Basophil# 0.06 X10^3/uL; Basophil% 0.6 % (0-1); Eosinophil# 0.16 X10^3/uL; Eosinophils% 1.7 % (0-5); Hematocrit 41.6 % (37-47); Hemoglobin 13.6 g/dL (12.0-15.0); Lymphocyte % 22.5 % (19-41); Mean Corp Hgb Conc 32.7 g/dL (32-36); Mean Corpuscular Hgb 32.5 pg (27.0-32.0); Mean Corpuscular Volume 99.5 fL (81-99); Mean Platelet Vol. 10.9 fl (6.2-12.0); Monocyte% 8.6 % (0-10); NRBC Flagged by Analyzer 0 % (0-5); Neutrophil # 6.17 X10^3/uL (2.7-7.7); Neutrophil % 66.2 % (47-70); Platelet Count 198 K/mm3 (150-450); RBC Distribution Width CV 13.4 % (11.6-14.6); RBC Distribution Width SD 49.1 fl (35.1-43.9); Red Blood Count 4.18 M/mm3 (4.2-5.4); White Blood Count 9.3 K/mm3 (4.4-11.0)
[2024-04-01] MEDS: Aspirin 325 MG Tablet PO (20:18)
[2024-04-01] MEDS: 0.9% Normal Saline (500mL Bag) 500 ML 999 ML IV (20:18)
[2024-04-01 20:44] LABS: Anion Gap 5 (5-15); BUN 14 mg/dL (7-18); BUN/Creat Ratio 13.2 RATIO (10-20); Calcium,Total 8.7 mg/dL (8.5-10.1); Chloride 106 mmol/L (98-107); Creatinine, Serum 1.06 mg/dL (0.55-1.02); EST Glomerular Filtration Rate 57 mL/min (>60); Est Glom Filt Rate - Afr Amer 69 mL/min (>60); Estimated Creatinine Clearance 49.35 ml/min; Glucose 76 mg/dL (74-106); Potassium 3.7 mmol/L (3.5-5.1); Sodium Level 140 mmol/L (136-145); Troponin-I HS (w/2H Reflex) 4 pg/mL (3.0-54.0)
[2024-04-01 21:01] LABS: Partial Thromboplast Time 28.4 Seconds (24.1-36.2)
[2024-04-01 22:05] LABS: Reflex Troponin-HS? (from REC) Y
[2024-04-01 22:45] LABS: Troponin-I HS 4 pg/mL (3.0-54.0)
== END 2024-04-01 23:19 | disposition home or self-care (01) ==
PROVIDERS: Emergency Provider Emergency Medicine; PCP Family Medicine; Visit Provider Emergency Medicine
DX: R07.9 Chest pain, unspecified (principal); E03.9 Hypothyroidism, unspecified; F17.210 Nicotine dependence, cigarettes, uncomplicated
CPT/HCPCS: 71045; 80048; 84484; 85025; 85610; 85730; 93005; 96360; 99283; J7040; A4216

== ENCOUNTER → 2024-09-04 | Outpatient (CLI) | payer BC, SELFPAY ==
[2024-09-04 18:10] LABS: Amphetamine Urine NEGATIVE (<1000 ng/mL); Barbiturate Urine VISTA NEGATIVE (< 200 ng/mL); Benzodiazepine Urine VISTA NEGATIVE (< 200 ng/mL); Cocaine Urine VISTA NEGATIVE (< 300 ng/mL); Ecstacy Urine VISTA NEGATIVE (< 500 ng/mL); Methadone Urine VISTA NEGATIVE (< 300 ng/mL); Opiates Urine POSITIVE (< 300 ng/mL); PCP Urine NEGATIVE (< 25 ng/mL); THC Urine VISTA POSITIVE (< 50 ng/mL); Vista UDS pH Range 5
== END | disposition home or self-care (01) ==
PROVIDERS: PCP Family Medicine; Visit Provider Family Medicine
DX: Z79.899 Other long term (current) drug therapy (principal)
CPT/HCPCS: 80307

== ENCOUNTER → 2024-12-31 | Outpatient (CLI) | payer BC, SELFPAY ==
--- NOTE | 2024-12-31 17:37 | CT_ITS ---
PROCEDURE: LOW DOSE CT LUNG SCREENING 12/31/2024 REASON FOR EXAM: SCREENING, SMOKER TECHNIQUE: LOW DOSE CT LUNG SCREENING Coronal and Sagittal reconstruction series were provided. One or more dose reduction techniques were used (e.g., Automated exposure control, adjustment of the mA and/or kV according to patient size, use of iterative reconstruction technique). REFERENCE LINK: [employer] Lung-RADS RADIATION DOSE SUMMARY: CTDlvol: 2.01 mGy DLP: 65.45 mGycm COMPARISON: 12/21/2023. FINDINGS: PULMONARY NODULES: (Only nodules >3mm are reported) Nodules described below are on series 2 unless otherwise specified. No pulmonary nodule or mass lesion is identified. Moderate coronary artery calcifications. Moderate emphysema. Unchanged scattered simple hepatic cysts with the largest measuring 1.8 cm. Normal unenhanced main pulmonary artery and right and left pulmonary arteries. Normal bilateral peripheral pulmonary arteries. Normal thoracic aorta and visualized great vessels. There is no demonstrated aortic aneurysm. Normal heart and pericardium. Normal mediastinum. Normal hilar regions. Normal visualized trachea and bronchi. Normal pleura. CT/Low Dose CT Lung Screening IMPRESSION: No pulmonary nodule or mass lesion is identified. Moderate coronary artery calcifications. Moderate emphysema. Unchanged scattered simple hepatic cysts with the largest measuring 1.8 cm. Coronary artery calcification (CAC) is is present Lung-RADS Category: 2 BENIGN (BASED ON IMAGING FEATURES OR INDOLENT BEHAVIOR). RECOMMEND 12-MONTH SCREENING LDCT. Reading [facility]
== END | disposition home or self-care (01) ==
PROVIDERS: PCP Family Medicine; Referring Provider Family Medicine; Visit Provider Family Medicine
DX: Z12.2 Encounter for screening for malignant neoplasm of respiratory organs (principal); Z72.0 Tobacco use
CPT/HCPCS: 71271

== ENCOUNTER 2025-03-14 08:37 | Day surgery (SDC) | payer BC, SELFPAY ==
--- NOTE | 2025-03-13 15:58 | PAT.ANE_ITS ---
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 When Was Last Pacemaker Check QUESTION #4 FULL TEXT: You/Your Family Experience fever (hyperthermia) with Anesthesia Last Oral Intake Last Oral intake: Last Oral Intake NPO since Meds taken in AM with sips of water? 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 Female Yes 03/13/25 15:15 HX of Motion Sickness No 03/13/25 15:15 HX of N/V After Surgery No 03/13/25 15:15 Non-Smoker No 03/13/25 15:15 Duration of Surgery greater No 03/13/25 15:15 than 60 minutes Number of Risk Factors 1 03/13/25 15:15 PONV Score Low Risk 03/13/25 15:15 Height & Weight Height & Weight: Anesthesia: Height & Weight Height 5 ft 1 in 04/01/24 19:29 Respiratory Assessment Respiratory Assessment - ring cutter lathe operator: Respiratory Tract Infection Hx - ring cutter lathe operator Hx Respiratory Tract Infection No 03/13/25 15:15 STOP Sleep Apnea STOP Sleep Apnea - ring cutter lathe operator: STOP Sleep Apnea - ring cutter lathe operator Hx Hypertension No 03/13/25 15:15 Hx Sleep Apnea No 03/13/25 15:15 CPAP BIPAP Do you snore loudly (louder Yes 03/13/25 15:15 than talking or can be heard Do you often feel tired/ Yes 03/13/25 15:15 fatigued/ sleepy during daytime? Has anyone observed you stop No 03/13/25 15:15 breathing during sleep? STOP Results Positive 03/13/25 15:15 QUESTION #5 FULL TEXT : Do you snore loudly (louder than talking or can be heard through closed doors)? 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 Specify any problems Hx of Preganancy in last 3 No 03/13/25 15:15 Months Nurse Filling Out Transfusion DSCHRIBER 03/13/25 15:15 & Questions: Date: 03/13/25 03/13/25 15:15 Time: 15:18 03/13/25 15:15 Patient unable to answer at this time (ie. 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: /Reproductive Hx- ring cutter lathe operator Hx Now No 03/13/25 15:15 Gestational Age (in weeks): EDC: Hx Hx Para Hx Section SAB No 03/13/25 15:15 PFS Medical History (Updated 03/13/25 @ 15:27 by Zara Mccauley) Wears glasses Wears dentures Post-menopausal Depression Marijuana use Rash Thyroid disease Easy bruising Spondylolisthesis Back pain Syncope Gastric reflux COPD (chronic obstructive pulmonary disease) Shortness of breath on exertion Smoker Leg cramps History of edema History of stress test Arthritis of right acromioclavicular joint Right rotator cuff tear Subacromial impingement of right shoulder Incontinence Feeling tired Arthritis Home Medications ?Medication ?Instructions ?Recorded ?Last Taken ?Type levothyroxine 175 mcg tablet 175 mcg PO DAILY 08/13/15 Unknown History omeprazole 20 mg capsule,delayed 20 mg PO DAILY #30 CA PSULES 01/07/23 Unknown Rx release oxycodone-acetaminophen 7.5 mg-325 1 tab PO 4XD Unknown History mg tablet pregabalin 100 mg capsule 100 mg PO TID 04/01/24 Unkno wn History Allergy/AdvReac Type Severity Reaction Status Date / Time No Known Allergies Allergy Verified 03/13/25 15:13 Family History Grandmother Heart disease Surgical History (Updated 03/13/25 @ 15:27 by Zara Mccauley) No history of previous surgery Social History household members: children Smoking Status: Current every day smoker tobacco type: cigarettes alcohol intake: never Audit: Pertinent Findings Pertinent Findings EKG Perinent findings: EKG performed 04/01/2024: Normal sinus rhythm nonspecific T wave abnormality abnormal EKG. Recommendation Anesthesia Recommendation Anesthesia recommendation: OPTIMIZED for anesthesia
[2025-03-14] VITALS (7 sets, daily range): BP systolic 92–128; BP diastolic 59–93; PULSE 61–78; RESP 16–18; TEMP 36.2–36.9; O2SAT 96–100; BMI 22.8
[2025-03-14] MEDS: Lactated Ringers 1,000 ML 15 ML IV (08:58)
--- NOTE | 2025-03-14 09:00 | EGD_PTH ---
PATIENT: SHANIQUE ROGERS LOC: EN U#:[id number] AGE/SX: 59/F ROOM: RE03/14/[address]: Dr. Asad William DO : 1965 BED: DIS: 03/14/2025 SPEC #: [id number] RECD: 03/14/25 12:04 STATUS: FRANCISCO RERossi #: [id number] CHEL: 03/14/25 09:[address]: Asad William DEPT: SURGICAL PATHOLOGY RECD BY: Doug Salomon ENTERED: 03/14/25 14:01 SP TYPE: EGD BIOPSY OT DR: Dr. Janak Clemente DO Tissues: A - Duodenum, NOS B - Gastric mucous membrane C - Cecum, NOS D - Rectum, NOS Procedures: Immunohistochemical Stains Surgery Specimen Level IV HEADER OPERATION: Colonoscopy, EGD, biopsy PRE-OP DIAGNOSIS: Screening for colon cancer, epigastric pain TISSUE SUBMITTED: A- Duodenum biopsy, B- Gastric body biopsy, C- Cecal polyp biopsy, D- Rectal polyp biopsy MICROSCOPIC DIAGNOSIS A. Duodenum, biopsy: - Normal villous architecture with no specific pathologic change. - Negative for increased intraepithelial lymphocytes. B. Gastric body, biopsy: - Oxyntic mucosa with active chronic gastritis. - Focal small intestinal mucosa - see note. - IHC positive for H. pylori organisms. Note: The small intestinal mucosa may represent intestinal metaplasia vs biopsy of the gastroduodenal junction. Recommend correlation with clinical and endoscopic findings. C. Cecum, polyp, biopsy: - Superficial hyperplastic change with prolapse features. D. Rectum, polyp, biopsy: - Hyperplastic polyp with prolapse features. MICROSCOPIC DESCRIPTION Slides are reviewed. ?All matched controls reacted appropriately. These tests were developed and their performance characteristics determined by [facility]. They may not have been cleared or approved by the U.S. Food and Drug Administration. The FDA has determined that such clearance or approval is not necessary.? The above immunohistochemical?markers and/or special stains have been reviewed by the Pathologist. GROSS DESCRIPTION A. Received in fixative is one container labeled with the patient's name and designated Duodenum biopsy. The specimen consists of five irregular fragments of light johnson soft tissue that measure 0.2 to 0.4 cm. The specimen is totally submitted in one cassette. B. Received in fixative is one container labeled with the patient's name and designated Gastric body biopsy. The specimen consists of five irregular fragments of light johnson soft tissue that measure 0.2 to 0.5 cm. The specimen is totally submitted in one cassette. C. Received in fixative is one container labeled with the patient's name and designated Cecal polyp biopsy. The specimen consists of one irregular fragment of light johnson soft tissue that measures 0.5 cm. The specimen is totally submitted in one cassette. D. Received in fixative is one container labeled with the patient's name and designated Rectal polyp biopsy. The specimen consists of two irregular fragments of light johnson soft tissue that measure 0.3 and 0.4 cm. The specimen is totally submitted in one cassette. SD 03/14/2025 CPT:30714b8 ,80194
--- NOTE | 2025-03-14 09:08 | PCM.HP.STD ---
[facility] - General General Date of Admission: 03/14/25 Date of Service: 03/14/25 HPI Narrative ASHLEIGH ROGERS, is a 59 F who presents with the Chief Complaint: epigastric pain and need for a screening colonoscopy Over the past year patient has been struggling with intermittent episodes of epigastric pain. It will typically start during the night. She will vomit and then have pain for at least 5 days. It is heavy and does not come and go. She cannot sit still when she has the pain. There are no alleviating factors. She does not eat during these episodes. She has had to miss a lot of work due to this. Her PCP did start her on Pantoprazole 40 mg daily and she has been trying to take it consistently. She denies diarrhea, constipation or blood in her stool. She smokes a half a back per day. Denies alcohol use. No hx of colonoscopy or EGD. [facility] Medical History Wears glasses Wears dentures Post-menopausal Depression Marijuana use Rash Thyroid disease Easy bruising Spondylolisthesis Back pain Syncope Gastric reflux COPD (chronic obstructive pulmonary disease) Shortness of breath on exertion Smoker Leg cramps History of edema History of stress test Arthritis of right acromioclavicular joint Right rotator cuff tear Subacromial impingement of right shoulder Incontinence Feeling tired Arthritis Home Medications ?Medication ?Instructions ?Recorded ?Last Taken ?Type levothyroxine 175 mcg tablet 175 mcg PO DAILY 08/13/15 03/14/25 06:00 History omeprazole 20 mg capsule,delayed 20 mg PO DAILY #30 CAPSULES 01/07/23 Unknown Rx release oxycodone-acetaminophen 7.5 mg-325 1 tab PO 4XD 01/07/23 03/14/25 06:00 History mg tablet pregabalin 100 mg capsule 100 mg PO TID 04/01/24 Unknown History Allergy/AdvReac Type Severity Reaction Status Date / Time No Known Allergies Allergy Verified 03/14/25 08:52 Family History Grandmother Heart disease Surgical History No history of previous surgery Social History household members: children Smoking Status: Current every day smoker tobacco type: cigarettes alcohol intake: never ROS Constitutional Constitutional: Denies fatigue, fever(s), poor appetite, weight gain or weight loss Gastrointestinal Gastrointestinal: Denies belching, bloating, change in bowel habits, change in stool character, chewing difficulty, coffee ground emesis, constipation, cramping, diarrhea, dyspepsia, dysphagia, early satiety, excessive flatus, fecal incontinence, heartburn, hematemesis, hematochezia, hemorrhoids, loose stools, melena, nausea, odynophagia, rectal bleeding, tenesmus, vomiting or weight changes Vital Signs Vital Signs Vital Signs: 03/14/25 08:53 03/14/25 08:53 Temperature 98.4 F Temperature Source Temporal Pulse Rate 78 Respiratory Rate 16 Respiratory Pattern Normal Blood Pressure 128/93 H Blood Pressure Mean 104 Blood Pressure Source Monitor Blood Pressure Position Semi-Fowlers Blood Pressure Location Right Arm Pulse Ox 100 Oxygen Delivery Method Room Air Weight Weight: 120 lb 13.013 oz Body Mass Index (BMI) 22.8 Physical Exam Const alert, oriented x3, no apparent distress and healthy appearing General Appearance: cooperative GI normal to inspection, nondistended, normoactive bowel sounds, soft to palpation, non-tender and non-distended Percussion: normal to percussion Rectal Exam: deferred Assessment & Plan Assessment/Plan (1) Screening for colon cancer: (2) Epigastric pain: PLAN: Assessment and Plan Assessment and Plan (1) Epigastric pain: Status: Acute Plan: Ashleigh is a 59 yo female pt here today for evaluation of intermittent episodes of epigastric pain. This has been happening every couple months for about one year. Pain will last for a few days and during this time she will not eat. There is no alleviating factors. SHe has been on PPI for few weeks now. I recommend she continue this. She will be schedule for EGD. She has no hx of screening colonoscopy. She will have a screening colonposcy at the same time. -EGD and colonoscopy -Continue PPI -f/u after procedure (2) Screening for colon cancer: Status: Acute
--- NOTE | 2025-03-14 09:19 | PCM.PRE.AN2 ---
ASA Classification* ASA Classification ASA Classification: 2 Assessment & Plan Anesthesia* Anesthesia Assessment Anesthesia Assessment: Discussed sedation and/or anesthesia options, risks, benefits, and alternatives with patient/parents/legal guardian/POA. Questions invited. The patient/parents/legal guardian/POA seems to understand and agrees to proceed with anesthesia plan. Reviewed the physical assessment, medical history, allergy history and patient home medications list prior to surgery/procedure/anesthetic and documented any changes. Performed airway and anesthesia risk assessments. Anesthesia Type Anesthesia Type: MAC History Source History Obtained from:: Patient and Chart Anesthesia Focused Assessment* Temperature: 98.4 F Pulse Rate: 78 Blood Pressure: 128/93 Respiratory Rate: 16 Pulse Ox: 100 Oxygen Delivery Method: Room Air Airway Assessment Mouth opens: >3 cm Mallampati Score: I Teeth Condition: Dentures (Patient has full upper and lower dentures. Bottoms are out. Top will come out.) Neck Range of motion (ROM): Full ROM Labs Anesthesia Preop lab: CBC WBC 9.3 K/mm3 (4.4-11.0) 04/01/24 20:00 04/01/24 RBC 4.18 M/mm3 (4.2-5.4) L 04/01/24 20:00 04/01/24 Hgb 13.6 g/dL (12.0-15.0) 04/01/24 20:00 04/01/24 Hct 41.6 % (37-47) 04/01/24 20:00 04/01/24 Plt Count 198 K/mm3 (150-450) 04/01/24 20:00 04/01/24 CHEMISTRY Potassium 3.7 mmol/L (3.5-5.1) 04/01/24 20:00 04/01/24 Sodium 140 mmol/L (136-145) 04/01/24 20:00 04/01/24 BUN 14 mg/dL (7-18) 04/01/24 20:00 04/01/24 Creatinine 1.06 mg/dL (0.55-1.02) H 04/01/24 20:00 04/01/24 Glucose 76 mg/dL (74-106) 04/01/24 20:00 04/01/24 TSH 3.43 uIU/mL (0.358-3.74) 11/29/23 15:30 11/29/23 COAG PT 13.0 SECONDS (11.7-14.9) 04/01/24 20:00 04/01/24 Pre-Assessment Diagnosis/Proposed Procedure Planned Operative Procedure(s): EGD/CSCOPE Anesthesia History Anesthesia History - associate media planner: Anesthesia History - associate media planner Hx Hospitalization No 03/13/25 15:15 Any Problems With Anesthesia No: NO SURGERY HX 03/13/25 15:15 Cholinesterase deficiency No 03/13/25 15:15 You/Your Family Experience No 03/13/25 15:15 fever (hyperthermia) with Relationship Recent Exposure to Contagious No 03/14/25 08:53 Disease Does patient have nerve No 03/13/25 15:15 stimulator Patient instructed to have device shut off --Does patient have Pacemaker No 03/14/25 08:53 or ICD? When Was Last Pacemaker Check QUESTION #4 FULL TEXT: You/Your Family Experience fever (hyperthermia) with Anesthesia Last Oral Intake Last Oral intake: Last Oral Intake NPO since 06:30 03/14/25 08:53 Meds taken in AM with sips of Yes 03/14/25 08:53 water? Meds patient instructed to take am of surgery Any additional information?: Yes NPO since: 06:30 (Patient finished her prep at 6:30 AM.) Meds taken in AM with sips of water?: Yes PONV PONV - associate media planner: PONV - associate media planner Female Yes 03/13/25 15:15 HX of Motion Sickness No 03/13/25 15:15 HX of N/V After Surgery No 03/13/25 15:15 Non-Smoker No 03/13/25 15:15 Duration of Surgery greater No 03/13/25 15:15 than 60 minutes Number of Risk Factors 1 03/13/25 15:15 PONV Score Low Risk 03/13/25 15:15 Height & Weight Height & Weight: Anesthesia: Height & Weight Height 5 ft 1 in 03/14/25 08:53 Weight: 54.8 kg 03/14/25 08:53 Body Mass Index (BMI) 22.8 03/14/25 08:53 Respiratory Assessment Respiratory Assessment - associate media planner: Respiratory Tract Infection Hx - associate media planner Hx Respiratory Tract Infection No 03/13/25 15:15 STOP Sleep Apnea STOP Sleep Apnea - associate media planner: STOP Sleep Apnea - associate media planner Hx Hypertension No 03/13/25 15:15 Hx Sleep Apnea No 03/13/25 15:15 CPAP BIPAP Do you snore loudly (louder Yes 03/13/25 15:15 than talking or can be heard Do you often feel tired/ Yes 03/13/25 15:15 fatigued/ sleepy during daytime? Has anyone observed you stop No 03/13/25 15:15 breathing during sleep? STOP Results Positive 03/13/25 15:15 QUESTION #5 FULL TEXT : Do you snore loudly (louder than talking or can be heard through closed doors)? 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 Specify any problems Hx of Preganancy in last 3 No 03/13/25 15:15 Months Nurse Filling Out Transfusion DSCHRIBER 03/13/25 15:15 & Questions: Date: 03/13/25 03/13/25 15:15 Time: 15:18 03/13/25 15:15 Patient unable to answer at this time (ie. confused, unrespo /Reproduction History /Reproductive History - associate media planner: /Reproductive Hx- associate media planner Hx Now No 03/13/25 15:15 Gestational Age (in weeks): EDC: Hx Hx Para Hx Section SAB No 03/13/25 15:15 Active Medications Active Medications: Current Medications Generic Name Dose Route Start Last Admin Trade Name Freq PRN Reason Stop Dose Admin Lactated Ringer's 1,000 mls @ 15 mls/hr 03/14/25 08:45 03/14/25 08:58 IV 15 mls/hr .Q48H SUSI Administration PFSH Medical History Wears glasses Wears dentures Post-menopausal Depression Marijuana use Rash Thyroid disease Easy bruising Spondylolisthesis Back pain Syncope Gastric reflux COPD (chronic obstructive pulmonary disease) Shortness of breath on exertion Smoker Leg cramps History of edema History of stress test Arthritis of right acromioclavicular joint Right rotator cuff tear Subacromial impingement of right shoulder Incontinence Feeling tired Arthritis Home Medications ?Medication ?Instructions ?Recorded ?Last Taken ?Type levothyroxine 175 mcg tablet 175 mcg PO DAILY 08/13/15 03/14/25 06:00 History omeprazole 20 mg capsule,delayed 20 mg PO DAILY #30 CAPSULES 01/07/23 Unknown Rx release oxycodone-acetaminophen 7.5 mg-325 1 tab PO 4XD 01/07/23 03/14/25 06:00 History mg tablet pregabalin 100 mg capsule 100 mg PO TID 04/01/24 Unknown History Allergy/AdvReac Type Severity Reaction Status Date / Time No Known Allergies Allergy Verified 03/14/25 08:52 Family History Grandmother Heart disease Surgical History No history of previous surgery no surgical history Social History household members: children Smoking Status: Current every day smoker tobacco type: cigarettes alcohol intake: never Review of Systems (Anesthesia) ROS Narrative System reviewed and no additional complaints, except as documented.
--- NOTE | 2025-03-14 10:09 | PCM.POST.ANE ---
Anesthesia: Postop Eval I Current Vital Signs Temperature: 97.3 F Pulse Rate: 61 Blood Pressure: 106/73 Respiratory Rate: 16 Pulse Ox: 98 Oxygen Delivery Method: Room Air Assessment Airway patent: Yes Spontaneous unlabored respirations: Yes Mental status: Asleep nausea: No Vomiting: No Anesthesia Complication: No Fluid Hydration Crystalloid volume administer (ml): 700 Total IV fluid infused: 700 Progress Note Anesthesia document: Postop Eval 1 completed: Yes
--- NOTE | 2025-03-14 10:12 | OP.EGD_ITS ---
Patient Name: Ashleigh Hannon Procedure Date: 03/14/2025 9:15 AM Date of : 1965 Age: 59 Procedure: Upper GI endoscopy Indications: Epigastric abdominal pain, Nausea, Weight loss Providers: Asad William DO Medicines: Monitored Anesthesia Care Patient Profile: This is a 59 year old female. Refer to note in patient chart for documentation of history and physical. Patient has symptoms of acute abdominal cramping, acute epigastric abdominal pain and acute dyspepsia. Complications: No immediate complications. Procedure: Pre-Anesthesia Assessment: - Prior to the procedure, a History and Physical was performed, and patient medications and allergies were reviewed. The patient is competent. The risks and benefits of the procedure and the sedation options and risks were discussed with the patient. All questions were answered and informed consent was obtained. Patient identification and proposed procedure were verified by the physician in the pre-procedure area. Mental Status Examination: alert and oriented. Airway Examination: normal oropharyngeal airway and neck mobility. Respiratory Examination: clear to auscultation. CV Examination: normal. Prophylactic Antibiotics: The patient does not require prophylactic antibiotics. Prior Anticoagulants: The patient has taken no anticoagulant or antiplatelet agents. ASA Grade Assessment: II - A patient with mild systemic disease. After reviewing the risks and benefits, the patient was deemed in satisfactory condition to undergo the procedure. The anesthesia plan was to use monitored anesthesia care (MAC). Immediately prior to administration of medications, the patient was re-assessed for adequacy to receive sedatives. The heart rate, respiratory rate, oxygen saturations, blood pressure, adequacy of pulmonary ventilation, and response to care were monitored throughout the procedure. The physical status of the patient was re-assessed after the procedure. After obtaining informed consent, the endoscope was passed under direct vision. Throughout the procedure, the patient's blood pressure, pulse, and oxygen saturations were monitored continuously. The colonoscope was introduced through the mouth, and advanced to the fourth part of the duodenum. Small bowel enteroscopy was deemed necessary. The upper GI endoscopy was accomplished without difficulty. The patient tolerated the procedure well. Scope In: 9:38:45 AM Scope Out: 9:44:30 AM Total Procedure Duration Time 0 hours 5 minutes 45 seconds Findings: The examined esophagus was normal. Diffuse mild mucosal changes characterized by congestion and granularity were found in the gastric body and in the gastric antrum. Biopsies were taken with a cold forceps for histology. Verification of patient identification for the specimen was done. Biopsies were taken with a cold forceps for Helicobacter pylori testing. Verification of patient identification for the specimen was done. Diffuse mildly erythematous mucosa without active bleeding and with no stigmata of bleeding was found in the entire duodenum. Biopsies were taken with a cold forceps for histology. Verification of patient identification for the specimen was done. Estimated blood loss was minimal. Impression: - Normal esophagus. - Congested and granular mucosa in the gastric body and antrum. Biopsied. - Erythematous duodenopathy. Biopsied. Recommendation: - Discharge patient to home. - Resume previous diet. - Continue present medications. - Await pathology results. Procedure Code(s): --- Professional --- 03793, Small intestinal endoscopy, enteroscopy beyond second portion of duodenum, not including ileum; with biopsy, single or multiple CPT copyright 2021 [employer]. All rights reserved. The codes documented in this report are preliminary and upon renewals representative review may be revised to meet current compliance requirements. Asad William DO 03/14/2025 10:11:45 AM This report has been signed electronically. Number of Addenda: 0 Note Initiated On: 03/14/2025 9:15 AM
--- NOTE | 2025-03-14 10:12 | OP.PROVAT_ITS ---
03/14/2025 Janak Clemente [address] [facility] [place] [address] Re : Upper GI endoscopy procedure for Ashleigh Hannon Dear Dr. Clemente This procedure was performed on February. My impressions and recommendations are as follows: Impressions : - Normal esophagus. - Congested and granular mucosa in the gastric body and antrum. Biopsied. - Erythematous duodenopathy. Biopsied. Recommendations : - Discharge patient to home. - Resume previous diet. - Continue present medications. - Await pathology results. My findings are described in the full procedure note, which is enclosed. If I can be of further assistance, please feel free to contact me at . Sincerely, Asad William, 03/14/2025 10:11:45 AM This report has been signed electronically.
--- NOTE | 2025-03-14 10:15 | OP.PROVAT_ITS ---
03/14/2025 Janak Clemente [address] [facility] [place] [address] Re : Colonoscopy procedure for Ashleigh Hannon Dear Dr. Clemente This procedure was performed on February. My impressions and recommendations are as follows: Impressions : - Preparation of the colon was fair. - Rectal prolapse. - Stool in the recto-sigmoid colon, in the sigmoid colon, in the descending colon, in the transverse colon, in the ascending colon and in the cecum. - No specimens collected. Recommendations : - Discharge patient to home. - Resume previous diet. - Continue present medications. - Await pathology results. - Repeat colonoscopy in 1 year because the bowel preparation was suboptimal. My findings are described in the full procedure note, which is enclosed. If I can be of further assistance, please feel free to contact me at . Sincerely, Asad William, 03/14/2025 10:14:59 AM This report has been signed electronically.
--- NOTE | 2025-03-14 10:15 | OP.COLON_ITS ---
Patient Name: Ashleigh Hannon Procedure Date: 03/14/2025 9:44 AM Date of : 1965 Age: 59 Procedure: Colonoscopy Indications: Screening for colorectal malignant neoplasm Providers: Asad William DO Medicines: Monitored Anesthesia Care Patient Profile: This is a 59 year old female. Refer to note in patient chart for documentation of history and physical. Patient has symptoms of acute abdominal cramping, acute epigastric abdominal pain and acute dyspepsia. Last Colonoscopy: none. The patient's first colonoscopy is today. Complications: No immediate complications. Procedure: Pre-Anesthesia Assessment: - Prior to the procedure, a History and Physical was performed, and patient medications and allergies were reviewed. The patient is competent. The risks and benefits of the procedure and the sedation options and risks were discussed with the patient. All questions were answered and informed consent was obtained. Patient identification and proposed procedure were verified by the physician in the pre-procedure area. Mental Status Examination: alert and oriented. Airway Examination: normal oropharyngeal airway and neck mobility. Respiratory Examination: clear to auscultation. CV Examination: normal. Prophylactic Antibiotics: The patient does not require prophylactic antibiotics. Prior Anticoagulants: The patient has taken no anticoagulant or antiplatelet agents. ASA Grade Assessment: II - A patient with mild systemic disease. After reviewing the risks and benefits, the patient was deemed in satisfactory condition to undergo the procedure. The anesthesia plan was to use monitored anesthesia care (MAC). Immediately prior to administration of medications, the patient was re-assessed for adequacy to receive sedatives. The heart rate, respiratory rate, oxygen saturations, blood pressure, adequacy of pulmonary ventilation, and response to care were monitored throughout the procedure. The physical status of the patient was re-assessed after the procedure. After I obtained informed consent, the scope was passed under direct vision. Throughout the procedure, the patient's blood pressure, pulse, and oxygen saturations were monitored continuously. The colonoscope was introduced through the anus and advanced to the cecum, identified by appendiceal orifice and ileocecal valve. The colonoscopy was performed without difficulty. The patient tolerated the procedure well. The quality of the bowel preparation was fair. The ileocecal valve, appendiceal orifice, and rectum were photographed. Scope In: 9:46:39 AM Scope Withdrawal Time 0 hours 8 minutes 53 seconds Scope Out: 9:59:59 AM Total Procedure Duration Time 0 hours 13 minutes 20 seconds Findings: The perianal and digital rectal examinations were normal. Moderate rectal prolapse was present. Stool was found in the recto-sigmoid colon, in the sigmoid colon, in the descending colon, in the transverse colon, in the ascending colon and in the cecum. Impression: - Preparation of the colon was fair. - Rectal prolapse. - Stool in the recto-sigmoid colon, in the sigmoid colon, in the descending colon, in the transverse colon, in the ascending colon and in the cecum. - No specimens collected. Recommendation: - Discharge patient to home. - Resume previous diet. - Continue present medications. - Await pathology results. - Repeat colonoscopy in 1 year because the bowel preparation was suboptimal. Procedure Code(s): --- Professional --- 58317, Colonoscopy, flexible; diagnostic, including collection of specimen(s) by brushing or washing, when performed (separate procedure) CPT copyright 2021 [employer]. All rights reserved. The codes documented in this report are preliminary and upon lifestyle consultant review may be revised to meet current compliance requirements. Asad William DO 03/14/2025 10:14:59 AM This report has been signed electronically. Number of Addenda: 0 Note Initiated On: 03/14/2025 9:44 AM
== END 2025-03-14 11:10 | disposition home or self-care (01) ==
LOC: EN 08:38 → AC 08:41
PROVIDERS: PCP Family Medicine; Referring Provider Family Medicine; Visit Provider Internal Medicine Gastroenterology
PROC: 0DJD8ZZ Inspection of Lower Intestinal Tract, Via Natural or Artificial Opening Endoscopic (ICD-10-PCS; CPT 45378; principal; 2025-03-14 08:55)
DX: Z12.11 Encounter for screening for malignant neoplasm of colon (principal); J44.9 Chronic obstructive pulmonary disease, unspecified; K62.3 Rectal prolapse; K21.9 Gastro-esophageal reflux disease without esophagitis; F17.210 Nicotine dependence, cigarettes, uncomplicated; Z79.890 Hormone replacement therapy; K29.50 Unspecified chronic gastritis without bleeding; K62.1 Rectal polyp
CPT/HCPCS: 44361; 45378; 88305; 88342; J2405

== ENCOUNTER → 2025-06-21 | Outpatient (CLI) | payer BC, SELFPAY ==
[2025-06-24 12:08] LABS: H. PYLORI STOOL AG Negative (Negative)
== END | disposition home or self-care (01) ==
LOC: LAB 14:26
PROVIDERS: PCP Family Medicine; Referring Provider Student in an Organized Health Care Education/Training Program; Visit Provider Student in an Organized Health Care Education/Training Program
DX: A04.8 Other specified bacterial intestinal infections (principal)
CPT/HCPCS: 87338